=== PATIENT | female | born 1990 | race American Indian/Alaskan Native ===

== ENCOUNTER 2020-01-18 05:03 | Emergency (ER) | payer SELFPAY ==
[2020-01-18 06:11] LABS: Basophils # (Auto) 0.1 K/mm3 (0.0-0.1); Basophils % (Auto) 0.5 % (0.0-1.8); Eosinophils # (Auto) 0.2 K/mm3 (0.0-0.4); Eosinophils % (Auto) 1.3 % (0.0-4.3); Hematocrit 43.2 % (30.3-42.9); Hemoglobin 14.9 gm/dl (10.1-14.3); Lymphocytes # (Auto) 1.5 K/mm3 (1.2-5.4); Lymphocytes % (Auto) 12.2 % (13.4-35.0); Mean Corpuscular HGB Conc 34 % (30-34); Mean Corpuscular Volume 88 fl (79-97); Monocytes % (Auto) 8.5 % (0.0-7.3); Platelet Count 329 K/mm3 (140-440); Red Blood Count 4.93 M/mm3 (3.65-5.03); Red Cell Distribution Width 13.5 % (13.2-15.2)
[2020-01-18 06:20] LABS: Blood Urea Nitrogen 8 mg/dL (7-17); Calcium 9.4 mg/dL (8.4-10.2); Hemolysis Index 6
[2020-01-18] MEDS ORDERED: IPRATROPIUM/ALBUTEROL SULFATE 3 ML AMPUL.NEB IH ONE (06:39)
[2020-01-18] MEDS ORDERED: ALBUTEROL 2.5 MG/3 ML NEBU IH ONE ×2 (06:39→06:43)
[2020-01-18] MEDS ORDERED: DEXAMETHASONE 4 MG TAB PO ONE (06:43)
[2020-01-18] MEDS ORDERED: IPRATROPIUM 0.02% NEBU 2.5 ML IH ONE (06:43)
[2020-01-18 06:48] LABS: BUN/Creatinine Ratio 11
--- NOTE | 2020-01-18 06:50 | Emergency Department Report ---
ED Shortness of Breath HPI - General Chief Complaint: Dyspnea/Respdistress Stated Complaint: SOB Time Seen by Provider: 01/18/20 06:42 Source: patient Mode of arrival: Ambulatory Limitations: No Limitations - History of Present Illness Initial Comments: 29-year-old female, history of asthma, presents to ED with shortness of breath x5 days. Patient reports associated subjective fever, cough, slight loss of taste. Patient states 1 month ago she was in contact with a coworker who tested positive for COVID-19, however no known COVID contacts since. Patient has not been tested for COVID. MD Complaint: shortness of breath -: days(s) (5) Severity: moderate Consistency: intermittent Improves With: rest Worsens With: exertion Known History Of: asthma Associated Symptoms: fever, cough Treatments Prior to Arrival: none - Related Data Home Oxygen Therapy: No Previous Rx's Medication Instructions Recorded Last Taken Type Naproxen [Naprosyn TAB] 500 mg PO BID PRN #12 tablet 04/22/18 Unknown Rx cephALEXin [Keflex] 500 mg PO Q12HR 7 Days #14 cap 04/22/18 Unknown Rx Albuterol Sulfate [Proventil Hfa] 2 puff IH Q4HR PRN #1 hfa.aer.ad 01/18/20 Unknown Rx predniSONE [Deltasone] 50 mg PO QDAY #5 tab 01/18/20 Unknown Rx Allergies Allergy/AdvReac Type Severity Reaction Status Date / Time No Known Allergies Allergy Unverified 04/22/18 14:57 ED Review of Systems ROS: Stated complaint: SOB Other details as noted in HPI Comment: All other systems reviewed and negative Constitutional: fever Respiratory: cough, shortness of breath ED Past Medical Hx - Past Medical History Previous Medical History?: Yes Additional medical history: ovarian cyst - Surgical History Past Surgical History?: No - Social History Smoking Status: Never Smoker Substance Use Type: Alcohol, Marijuana - Medications Home Medications: Home Medications Medication Instructions Recorded Confirmed Last Taken Type Naproxen [Naprosyn TAB] 500 mg PO BID PRN #12 tablet 04/22/18 Unknown Rx cephALEXin [Keflex] 500 mg PO Q12HR 7 Days #14 cap 04/22/18 Unknown Rx Albuterol Sulfate [Proventil Hfa] 2 puff IH Q4HR PRN #1 hfa.aer.ad 01/18/20 Unknown Rx predniSONE [Deltasone] 50 mg PO QDAY #5 tab 01/18/20 Unknown Rx ED Physical Exam - General Limitations: No Limitations General appearance: alert - Eye Eye exam: Present: normal appearance, EOMI - ENT ENT exam: Present: mucous membranes moist - Neck Neck exam: Present: normal inspection - Respiratory Respiratory exam: Present: respiratory distress, wheezes - Cardiovascular Cardiovascular Exam: Present: normal rhythm, tachycardia - GI/Abdominal GI/Abdominal exam: Present: soft. Absent: distended, tenderness - Extremities Exam Extremities exam: Present: normal inspection - Neurological Exam Neurological exam: Present: alert, oriented X3 - Psychiatric Psychiatric exam: Present: normal affect, normal mood - Skin Skin exam: Present: warm, dry, intact, normal color ED Course Vital Signs 01/18/20 01/18/20 01/18/20 05:11 05:13 05:53 Temperature 98.2 F 98.2 F Pulse Rate 121 H 121 H 101 H Pulse Rate [ Anterior Bilateral Throughout] Respiratory 18 18 25 H Rate Respiratory Rate [Anterior Bilateral Throughout] Blood Pressure 152/108 152/108 O2 Sat by Pulse 93 92 98 Oximetry 01/18/20 01/18/20 01/18/20 06:00 06:16 06:30 Temperature Pulse Rate 112 H 111 H 99 H Pulse Rate [ Anterior Bilateral Throughout] Respiratory 30 H 25 H 22 Rate Respiratory Rate [Anterior Bilateral Throughout] Blood Pressure 162/119 143/103 185/123 O2 Sat by Pulse 98 98 96 Oximetry 01/18/20 01/18/20 01/18/20 06:46 06:51 07:00 Temperature Pulse Rate Pulse Rate [ 105 H Anterior Bilateral Throughout] Respiratory 19 19 Rate Respiratory 20 Rate [Anterior Bilateral Throughout] Blood Pressure 185/123 157/101 O2 Sat by Pulse 98 94 Oximetry 01/18/20 01/18/20 01/18/20 08:00 09:00 10:14 Temperature Pulse Rate 93 H Pulse Rate [ Anterior Bilateral Throughout] Respiratory 18 24 Rate Respiratory Rate [Anterior Bilateral Throughout] Blood Pressure 132/77 132/77 132/77 O2 Sat by Pulse 96 95 96 Oximetry 01/18/20 01/18/20 11:00 12:00 Temperature Pulse Rate 90 Pulse Rate [ Anterior Bilateral Throughout] Respiratory 17 Rate Respiratory Rate [Anterior Bilateral Throughout] Blood Pressure 145/102 141/89 O2 Sat by Pulse 96 94 Oximetry ED Medical Decision Making - Lab Data Result diagrams: 01/18/20 05:53 01/18/20 05:53 - EKG Data -: EKG Interpreted by Me EKG shows normal: sinus rhythm, axis, intervals, QRS complexes, ST-T waves Rate: tachycardia (rate 118) - Radiology Data Radiology results: report reviewed, image reviewed - Medical Decision Making 29-year-old female with acute asthma exacerbation. Initial O2 sats 92% on room air. Diffuse wheezing on exam. Patient given Decadron, mag sulfate, albuterol and Atrovent nebulizer treatments. Chest x-ray negative for any acute findings. D-dimer was elevated, so CTA chest was obtained. CTA negative for PE or infiltrate. Only atelectasis seen. Patient is afebrile. Patient reports she is scheduled for COVID test today at 2 PM. Patient urged to still get tested. She is feeling much better so will discharge at this time. O2 sats normal. Outpatient follow-up advised, return precautions given. Prescriptions will be given as well. - Differential Diagnosis COVID-19, asthma, pneumonia Critical Care Time: Yes Critical care time in (mins) excluding proc time.: 35 Critical care attestation.: If time is entered above; I have spent that time in minutes in the direct care of this critically ill patient, excluding procedure time. Critical Care Time: 35 min ED Disposition Clinical Impression: Acute asthma exacerbation, Suspected 2019 novel coronavirus infection Disposition: - TO HOME OR SELFCARE Is pt being admited?: No Condition: Stable Instructions: COVID-19, Asthma (ED) Prescriptions: predniSONE [Deltasone] 50 mg PO QDAY #5 tab Albuterol Sulfate [Proventil Hfa] 2 puff IH Q4HR PRN #1 hfa.aer.ad PRN Reason: Wheezing Referrals: LINDA GONZALEZ MD [Primary Care Provider] - 3-5 Days PRIMARY CAREMD [Referring] - 3-5 Days CHRISTIANE PEOPLES MD [Staff Physician] - 3-5 Days Time of Disposition: 10:41
--- NOTE | 2020-01-18 07:04 | XRay Report ---
CHEST 1 VIEW, 01/18/2020 5:51 AM CLINICAL INFORMATION/INDICATION: Shortness of breath COMPARISON: None FINDINGS: SUPPORT DEVICES: None. HEART: The cardiac silhouette is normal in size. LUNGS/PLEURA: The lungs are clear of focal airspace disease or significant pleural effusion. ADDITIONAL FINDINGS: No additional acute findings. IMPRESSION: 1. No evidence of acute cardiopulmonary process. Signer Name: Yessica Emanuel MD Signed: 01/18/2020 6:59 AM Workstation Name: [id number]
[2020-01-18] MEDS ORDERED: MAGNESIUM SULFATE 2 GM/50 ML BAG IV ONE (07:08)
[2020-01-18 07:57] LABS: Partial Thromboplastin Time 34.4 Sec. (24.2-36.6)
[2020-01-18] MEDS ORDERED: MAGNESIUM SULFATE 2 GM in SODIUM CHLORIDE 0.9% 50 ML IV ONE (09:00)
--- NOTE | 2020-01-18 10:32 | Cat Scan Report ---
CTA CHEST WITH IV CONTRAST INDICATION: sob, elevated d-dimer. TECHNIQUE: Axial CT images were obtained through the chest after injection of 100 cc Omnipaque 350 IV contrast. 3 plane MIP reconstructions were produced. All CT scans at this location are performed using CT dose reduction for ALARA by means of automated exposure control. COMPARISON: None available. FINDINGS: PULMONARY ARTERIES: No pulmonary emboli. THORACIC AORTA: No acute abnormality. HEART: Normal. CORONARY ARTERIES: No significant calcification. PLEURA: No pleural effusion. No pneumothorax. LYMPH NODES: No significant adenopathy. LUNGS: Focal area of atelectasis medial aspect of lingula measuring 2.5 x 0.8 cm. ADDITIONAL FINDINGS: None. UPPER ABDOMEN: No acute findings. SKELETAL STRUCTURES: No significant osseous abnormality. IMPRESSION: 1. No CT evidence for pulmonary embolism. 2. Partial lingular atelectasis. Signer Name: Scooter Galaviz MD Signed: 01/18/2020 10:27 AM Workstation Name: [id number]
[2020-01-18 12:07] VITALS: BP 141/89
== END 2020-01-18 12:07 | disposition home or self-care (01) ==
LOC: ED 05:03
DX: J45.901 Unspecified asthma with (acute) exacerbation (principal); F12.90 Cannabis use, unspecified, uncomplicated; Z20.828 Contact with and (suspected) exposure to other viral communicable diseases; Z79.899 Other long term (current) drug therapy
CPT/HCPCS: 36415; 71045; 71275; 80048; 84703; 85025; 85379; 85610; 85730; 93005; 94640; 96365; 99284; J3475; J8540; Q9967; 94644